=== PATIENT | female | born 2000 | race Caucasian/White ===

== ENCOUNTER 2022-06-30 12:09 | Emergency (ER) | payer OTHER ==
[2022-06-30 12:53] VITALS: BP 128/76; PULSE 74; RESP 17; TEMP 98; BMI 28.3
[2022-06-30] MEDS ORDERED: IBUPROFEN 400 MG TABLET (FP) PO ONE ×2 (13:12→13:30)
[2022-06-30] MEDS ORDERED: ACETAMINOPHEN 325 MG TABLET (FP) PO ONE (13:12)
[2022-06-30] MEDS ORDERED: ACETAMINOPHEN 325 MG TABLET (FP) ONE (13:30)
== END 2022-06-30 13:35 | disposition home or self-care (01) ==
LOC: JERFT 12:09
DX: M54.50 Low back pain, unspecified (principal); V49.40XA Driver injured in collision with unspecified motor vehicles in traffic accident, initial encounter
CPT/HCPCS: 99283-25